=== PATIENT | male | born 1935 | race African-American/Black ===

== ENCOUNTER 2019-11-23 17:57 | Inpatient (IN) | payer OTHER ==
[~2019-11-23] VITALS: Ht 177.8 cm; Wt 57.3 kg
[2019-11-23] MEDS ORDERED: CEFTRIAXONE 1 G PREMIX 50 ML IV ONE (18:45)
[2019-11-23] MEDS ORDERED: SODIUM CHLORIDE 0.9% 1000ML BAG (SEPSIS BOLUS) IV ONE (18:45)
[2019-11-23] MEDS ORDERED: DILTIAZEM HCL 5MG/ML 5ML VIAL IV ONE (19:45)
[2019-11-23 20:13] LABS: INR 1.3
[2019-11-23 20:14] LABS: HEMATOCRIT. 33.8 % (42.0-52.0); HEMOGLOBIN. 11.4 g/dL (14.0-18.0); MEAN CORPUSCULAR HEMOGLOBIN 29.6 pg (28.0-32.0); MEAN PLATELET VOLUME 8.2 fl (7.4-10.4); PLATELET 78 x1000/uL (130-400); RED BLOOD CELL COUNT 3.84 mill/uL (4.7-6.1); RED CELL DISTRIBUTION WIDTH 14.4 % (11.6-14.6)
[2019-11-23 20:22] LABS: CHLORIDE 113 mEq/L (98-107)
[2019-11-23 20:25] LABS: ETHANOL BLOOD < 10 mg/dL
[2019-11-23 20:29] LABS: LDL CHOLESTEROL 28 mg/dL (5-100)
[2019-11-23 21:18] LABS: CLARITY URINE CLOUDY (CLEAR); COLOR URINE YELLOW (YELLOW); KETONES URINE NEGATIVE (NEGATIVE); LEUKOCYTE ESTERASE URINE 1+ (NEGATIVE); NITRITE URINE NEGATIVE (NEGATIVE); OCCULT BLOOD URINE NEGATIVE (NEGATIVE); PROTEIN URINE NEGATIVE (NEGATIVE); SPECIFIC GRAVITY URINE 1.009 (1.005-1.030); UROBILINOGEN URINE 0.2 E.U./dL (0.2-1.0)
[2019-11-23] MEDS ORDERED: ACETAMINOPHEN 650MG SUPP PR ONE (21:45)
[2019-11-23] MEDS ORDERED: VANCOMYCIN 1 G PREMIX 200 ML IV SCH (21:45)
[2019-11-23 21:52] LABS: *BARBITURATES SCREEN URINE NEGATIVE (NEGATIVE)
[2019-11-23 21:53] LABS: *BENZODIAZEPINES SCREEN URINE NEGATIVE (NEGATIVE); *COCAINE SCREEN URINE NEGATIVE (NEGATIVE); METHADONE URINE SCREEN NEGATIVE (NEGATIVE); OPIATES URINE SCREEN NEGATIVE (NEGATIVE)
[2019-11-23 21:53] LABS: NUCLEATED RED BLOOD CELLS 1 /100 WBC
[2019-11-23 21:54] LABS: *AMPHETAMINES SCREEN URINE NEGATIVE (NEGATIVE); CANNABINOID URINE SCREEN NEGATIVE (NEGATIVE); PHENCYCLIDINE URINE SCREEN NEGATIVE (NEGATIVE)
[2019-11-23 21:54] LABS: PLATELET ESTIMATE DECREASED
[2019-11-23] MEDS ORDERED: NOREPINEPHRINE 4MG/250ML PMX 250 ML IV ONE (23:15)
[2019-11-23] MEDS ORDERED: DILTIAZEM HCL 5MG/ML 10ML VIAL IV NR (23:15)
[2019-11-23] MEDS ORDERED: NOREPINEPHRINE 4 MG in DEXT 5% WATER 246 ML IV ONE (23:45)
[2019-11-24] MEDS ORDERED: ONDANSETRON HCL 4MG/2ML INJ IV PRN
[2019-11-24] MEDS ORDERED: ACETAMINOPHEN 650MG SUPP PR PRN
[2019-11-24] MEDS ORDERED: VANCOMYCIN 1 G PREMIX 200 ML IV SCH
[2019-11-24] MEDS ORDERED: DIPHENHYDRAMINE 50MG/ML VIAL IV PRN
[2019-11-24 05:59] LABS: HEMATOCRIT. 38.5 % (42.0-52.0); HEMOGLOBIN. 12.6 g/dL (14.0-18.0); MEAN CORPUSCULAR HEMOGLOBIN 28.9 pg (28.0-32.0); MEAN PLATELET VOLUME 8.8 fl (7.4-10.4); PLATELET 80 x1000/uL (130-400); RED BLOOD CELL COUNT 4.37 mill/uL (4.7-6.1); RED CELL DISTRIBUTION WIDTH 14.6 % (11.6-14.6)
[2019-11-24 06:04] LABS: CHLORIDE 114 mEq/L (98-107)
[2019-11-24 06:09] LABS: PHOSPHORUS 2.5 mg/dL (2.5-4.9)
[2019-11-24 07:17] LABS: PLATELET ESTIMATE DECREASED
[2019-11-24] MEDS ORDERED: MEROPENEM 1,000 MG in SODIUM CHLORIDE 0.9% 100 ML IV NR (10:30)
[2019-11-24] MEDS: DEXT 5%/0.45% NACL KCL 10MEQ/L 1,000 ML IV SCH ×2 (10:41→20:26)
[2019-11-24] MEDS ORDERED: MEROPENEM 1,000 MG in SODIUM CHLORIDE 0.9% 100 ML IV SCH (23:15)
[2019-11-25] VITALS (85 sets, daily range): BP systolic 65–136; BP diastolic 44–104
[2019-11-25] MEDS: DOPAMINE 400MG/250ML PREMIX 250 ML IV PRN ×2 (02:41→18:40)
[2019-11-25] MEDS ORDERED: VANCOMYCIN 1,750 MG in DEXT 5% WATER 250 ML IV NR (03:00)
[2019-11-25 05:37] LABS: HEMOGLOBIN. 12.9 g/dL (14.0-18.0); MEAN CORPUSCULAR VOLUME 87.8 fL (80.0-94.0); MEAN PLATELET VOLUME 9.4 fl (7.4-10.4); PLATELET 69 x1000/uL (130-400); RED BLOOD CELL COUNT 4.44 mill/uL (4.7-6.1); RED CELL DISTRIBUTION WIDTH 14.9 % (11.6-14.6)
[2019-11-25] MEDS: DEXT 5%/0.45% NACL KCL 10MEQ/L 1,000 ML IV SCH ×3 (06:25→19:00)
[2019-11-25] MEDS ORDERED: MEROPENEM 1,000 MG in SODIUM CHLORIDE 0.9% 100 ML IV SCH (09:00)
[2019-11-25 10:49] LABS: PLATELET ESTIMATE DECREASED
[2019-11-25] MEDS ORDERED: LOVA40TA73 PO (13:10)
[2019-11-25] MEDS ORDERED: TAMS-11 PO (13:14)
[2019-11-25] MEDS ORDERED: CARB-119 PO (13:25)
[2019-11-25] MEDS ORDERED: FLUD0.1T PO (13:25)
[2019-11-25] MEDS ORDERED: FINA1TAB18 MT (13:25)
[2019-11-25] MEDS ORDERED: FLUD0.1T MT (13:25)
[2019-11-25] MEDS ORDERED: CEFAZOLIN 1000MG PREMIX 50 ML IV SCH (17:00)
[2019-11-26] MEDS ORDERED: VANCOMYCIN 750 MG PREMIX 150 ML IV SCH (02:00)
== END 2019-11-25 21:54 | disposition short-term general hospital (02) | DRG 871 ==
LOC: ER 17:57 → MICUSO 22:11 → EDBEDREQ 22:13 → EDBEDREQTM 22:13 → EDBEDREQSVC 11-24 02:28 → ENRESERV 11-24 23:48
PROVIDERS: ADMIT Internal Medicine; ATTEND Internal Medicine
PROC: 02HV33Z Insertion of Infusion Device into Superior Vena Cava, Percutaneous Approach (ICD-10-PCS; principal; 2019-11-23)
PROC: B548ZZA Ultrasonography of Superior Vena Cava, Guidance (ICD-10-PCS; 2019-11-23)
DX: A41.51 Sepsis due to Escherichia coli [E. coli] (principal); R65.21 Severe sepsis with septic shock; E43 Unspecified severe protein-calorie malnutrition; N39.0 Urinary tract infection, site not specified; N17.9 Acute kidney failure, unspecified; Z68.1 Body mass index [BMI] 19.9 or less, adult; R74.0 Nonspecific elevation of levels of transaminase and lactic acid dehydrogenase [LDH]; D69.6 Thrombocytopenia, unspecified; R62.7 Adult failure to thrive; G20 Parkinson's disease; F02.80 Dementia in other diseases classified elsewhere, unspecified severity, without behavioral disturbance, psychotic disturbance, mood disturbance, and anxiety; I10 Essential (primary) hypertension; N40.0 Benign prostatic hyperplasia without lower urinary tract symptoms; K59.00 Constipation, unspecified; J32.0 Chronic maxillary sinusitis; L89.156 Pressure-induced deep tissue damage of sacral region
CPT/HCPCS: 36415; 71045; 76770; 80048; 80053; 80076; 80305; 80320; 81003; 82962; 83605; 83721; 83735; 83880; 84100; 84145; 84484; 85025; 86850; 86900; 86920; 87077; 87186; 93005; 93970; 99285; J0690; J0696; J1265; J2185; J3370; J3490; J7030; J7050; J7060; A4315; G0480